=== PATIENT | female | born 1965 | race Caucasian/White ===

== ENCOUNTER 2021-04-11 07:50 | Emergency (ER) | payer OTHER, SELFPAY ==
[2021-04-11 07:55] VITALS: BP 146/94; PULSE 96; RESP 16; TEMP 37.2; O2SAT 92; BMI 37.0
--- NOTE | 2021-04-11 08:11 | XR_ITS ---
WS: [id number] Portable AP upright chest, 04/11/2021 Clinical Data: cough Comparison: Portable chest, 08/14/2017. Findings: No nodules, masses or effusions are seen. The heart is normal. The pulmonary vascularity is not increased. No pneumothorax is seen. There is minimal patchy opacity adjacent to the right cardia c border and also the left cardiac border and surface of the left diaphragm. The upper lobes are kellie r. XR/XR chest 1V portable [id number] Impression: Minimal patchy opacities at both lung bases which could represent atelectasis a nd/or minimal pneumonia.
--- NOTE | 2021-04-11 08:12 | ED_ITS ---
Documented by User: ERA Lutz 04/11/21 10:22 HPI - COVID General: Chief Complaint: COVID symptoms Stated Complaint: COUGH/CHEST TIGHTNESS/CRAMPING IN LEGS Time Seen by Provider: 04/11/21 07:59 Triage information: Has fever, cough or shortness of breath . Exposure to COVID + person last 14 days History of Present Illness: HPI Narrative: Patient started with symptoms 8 days ago. Patient has bilateral leg pain MD complaint: reported COVID exposure Prior covid testing: no COVID 19 common symptoms: positive chills, cough, non-productive cough, body aches, loss of sense of smell and/or taste and throat pain; negative headache(s), nausea or vomiting COVID 19 other sytmptoms: negative chest pain Onset (ago): day(s) Severity: mild Treatment prior to arrival: none COVID Results: SARS-CoV-2 Antigen (Rapid) Negative (Negative) 04/11/21 08:32 04/11/21 Review of Systems Const: Reports: chills and body aches Eyes: Denies: change in vision or blurry vision ENMT: Reports: throat pain Card: Denies: chest pain or dyspnea on exertion Resp: Reports: non-productive cough GI: Denies: abdominal pain, nausea or vomiting Musc: Denies: extremity pain Skin/Breast: Denies: rash Neuro: Denies: headache(s) Psych: Denies: anxiety or depression Robbin/Lymph: Denies: easy bruising Physical Exam Const: COMMON NORMALS: no acute distress, average body habitus and patient oriented x3 HENMT: COMMON NORMALS: normocephalic HEAD & SCALP: normal to inspection and normocephalic FACE & SINUS: normal facial exam Eye: COMMON NORMALS: conjunctivae normal GENERAL EYE: appearance normal, both eyes and all related structures CONJUNCTIVA: Yes conjunctivae normal Neck/C-Spine: COMMON NORMALS: no JVD Chest: COMMONS NORMALS: normal inspection of the chest Resp: COMMON NORMALS: normal respiratory effort and clear to auscultation bilaterally AUSCULTATION: clear to auscultation bilaterally Cardio: COMMON NORMALS: no JVD, regular rate and regular rhythm RATE: regular rate RHYTHM: regular rhythm GI: COMMON NORMALS: Normal to inspection, nondistended, normoactive bowel sounds present Extremity: COMMON NORMALS: normal to inspection and full ROM RIGHT LOWER EXTREMITY: Yes lower leg (Appears normal) LEFT LOWER EXTREMITY: Yes lower leg (Appears normal) Neuro: COMMON NORMALS: patient oriented x3 Course Vital Signs: Vital signs: Vital Signs Temperature 98.9 F 04/11/21 07:55 Pulse Rate 82 04/11/21 09:32 Respiratory Rate 16 04/11/21 08:34 Blood Pressure 126/89 04/11/21 08:34 Pulse Oximetry 96 04/11/21 09:32 MDM - COVID MDM Narrative: Medical decision making narrative: Patient presents with clinical signs of Covid. Did have recent Covid exposure. Patient has loss of taste and smell that occurred 8 days ago has had chills headache and nonproductive cough patient has bilateral lower extremity pain that started yesterday. Patient does not have any swelling redness or increased warmth to lower extremities. Able ambulate without difficulty. Clinical exam negative for DVT related presentation Homans' sign was negative. X-ray did show increased opacities in the lung bases. Patient is on day 8 of her symptoms. Patient declines PCR since she would not be able to most likely get a monoclonal antibody infusion by time test results are back. Patient encouraged to follow- up with primary care provider return here if worsening symptoms continue to monitor oxygen levels at home. Lab Data: Labs: Lab Results 04/11/21 04/11/21 04/11/21 08:32 08:32 08:32 WBC 5.4 10^3/uL 10^3/ uL (4.0-10.0) RBC 4.65 10^6/uL 10^6 /uL (4.1-5.3) Hgb 14.2 g/dL g/dL (11.5-15.3) Hct 40.3 % % (37.0-47.0) MCV 86.7 fl fl (81-99) MCH 30.5 pg pg (28.0-34.0) MCHC 35.2 g/dL g/dL (30.0-36.0) RDW 11.9 % L % (12.1-15.1) Plt Count 195 10^3/cmm 10^3 /cmm (130-400) MPV 10.0 fL fL (7.4-10.4) Neut % (Auto) 75.4 % % Lymph % (Auto) 14.9 % % [place] % (Auto) 8.4 % % Eos % (Auto) 0.2 % % Baso % (Auto) 0.2 % % Neut # (Auto) 4.05 10^3/uL 10^3 /uL (1.8-7.7) Lymph # (Auto) 0.8 10^3/uL 10^3/ uL (0.8-4.8) [place] # (Auto) 0.5 10^3/uL 10^3/ uL (0.2-0.9) Eos # (Auto) 0.0 10^3/uL 10^3/ uL (0.0-0.8) Baso # (Auto) 0.0 10^3/uL 10^3/ uL (0.0-0.1) Nucleated RBC % (a uto) 0 % % Nucleated RBCs # 0.0 /100WBC /100W BC Sodium 133 mmol/L L mmol /L (136-145) Potassium 4.0 mmol/L mmol/L (3.5-5.1) Chloride 100 mmol/L mmol/L (98-107) Carbon Dioxide 21 mmol/L L mmol/ L (22-29) Anion Gap 16.0 (5-19) BUN 8 mg/dL mg/dL (6-20) Creatinine 0.5 mg/dL mg/dL (0.5-0.9) GFR Calculation 129.1 mL/min mL/m in (90-130) Glucose 93 mg/dL mg/dL (65-115) Calculated Osmolal ity 274 mOsm/kg L mOs m/kg (285-295) Calcium 8.2 mg/dL L mg/dL (8.5-10.5) SARS-CoV-2 Ag (Rap id) Negative (Negative) COVID Results: SARS-CoV-2 Antigen (Rapid) Negative (Negative) 04/11/21 08:32 04/11/21 Discharge Plan Discharge Patient Disposition: Home Clinical Impression: Suspected severe acute respiratory syndrome coronavirus 2 (SARS-CoV-2) infection Condition: Stable Prescriptions: New Zithromax Z-Bryce 250 mg tablet See Rx Instructions .ROUTE .COMPLEX Qty: 6 RF: 0 Decadron 6 mg tablet 6 mg PO DAILY Qty: 7 RF: 0 Discharge Orders: Discharge ED (Routine); Ordered 04/11/21 Ordered By: Jovany De Los Santos Referrals: Osmin Cruz DO [Primary Care Provider] - Discharge Diet: Usual diet Discharge Activity: Increase activity as tolerated Patient Instructions: Viral Syndrome (ED) Activity Restrictions/Additional Instructions: Follow-up with medical provider as directed. Take medications as prescribed. Return to the ER or your medical provider if condition worsens. Please read and understand discharge instructions. If any questions ask please. Recommend quarantine for at least 3 more days. Coding Level of Care Code ED Courtesy Clerk for Chg Fwd Exam Comprehensive Documented by User: Jerald Degroot 04/11/21 10:36 HPI - COVID General: Chief Complaint: COVID symptoms Stated Complaint: COUGH/CHEST TIGHTNESS/CRAMPING IN LEGS Time Seen by Provider: 04/11/21 07:59 COVID Results: SARS-CoV-2 Antigen (Rapid) Negative (Negative) 04/11/21 08:32 04/11/21 Course Vital Signs: Vital signs: Vital Signs Temperature 98.9 F 04/11/21 07:55 Pulse Rate 82 04/11/21 09:32 Respiratory Rate 16 04/11/21 08:34 Blood Pressure 126/89 04/11/21 08:34 Pulse Oximetry 96 04/11/21 09:32 MDM - COVID Lab Data: Labs: Lab Results 04/11/21 04/11/21 04/11/21 08:32 08:32 08:32 WBC 5.4 10^3/uL 10^3/ uL (4.0-10.0) RBC 4.65 10^6/uL 10^6 /uL (4.1-5.3) Hgb 14.2 g/dL g/dL (11.5-15.3) Hct 40.3 % % (37.0-47.0) MCV 86.7 fl fl (81-99) MCH 30.5 pg pg (28.0-34.0) MCHC 35.2 g/dL g/dL (30.0-36.0) RDW 11.9 % L % (12.1-15.1) Plt Count 195 10^3/cmm 10^3 /cmm (130-400) MPV 10.0 fL fL (7.4-10.4) Neut % (Auto) 75.4 % % Lymph % (Auto) 14.9 % % [place] % (Auto) 8.4 % % Eos % (Auto) 0.2 % % Baso % (Auto) 0.2 % % Neut # (Auto) 4.05 10^3/uL 10^3 /uL (1.8-7.7) Lymph # (Auto) 0.8 10^3/uL 10^3/ uL (0.8-4.8) [place] # (Auto) 0.5 10^3/uL 10^3/ uL (0.2-0.9) Eos # (Auto) 0.0 10^3/uL 10^3/ uL (0.0-0.8) Baso # (Auto) 0.0 10^3/uL 10^3/ uL (0.0-0.1) Nucleated RBC % (a uto) 0 % % Nucleated RBCs # 0.0 /100WBC /100W BC Sodium 133 mmol/L L mmol /L (136-145) Potassium 4.0 mmol/L mmol/L (3.5-5.1) Chloride 100 mmol/L mmol/L (98-107) Carbon Dioxide 21 mmol/L L mmol/ L (22-29) Anion Gap 16.0 (5-19) BUN 8 mg/dL mg/dL (6-20) Creatinine 0.5 mg/dL mg/dL (0.5-0.9) GFR Calculation 129.1 mL/min mL/m in (90-130) Glucose 93 mg/dL mg/dL (65-115) Calculated Osmolal ity 274 mOsm/kg L mOs m/kg (285-295) Calcium 8.2 mg/dL L mg/dL (8.5-10.5) SARS-CoV-2 Ag (Rap id) Negative (Negative) COVID Results: SARS-CoV-2 Antigen (Rapid) Negative (Negative) 04/11/21 08:32 04/11/21 Discharge Plan Discharge Patient Disposition: Home Clinical Impression: Suspected severe acute respiratory syndrome coronavirus 2 (SARS-CoV-2) infection Condition: Stable Prescriptions: New Zithromax Z-Bryce 250 mg tablet See Rx Instructions .ROUTE .COMPLEX Qty: 6 RF: 0 Decadron 6 mg tablet 6 mg PO DAILY Qty: 7 RF: 0 Discharge Orders: Discharge ED (Routine); Ordered 04/11/21 Ordered By: Jovany De Los Santos Referrals: Osmin Cruz, [Primary Care Provider] - Discharge Diet: Usual diet Discharge Activity: Increase activity as tolerated Patient Instructions: Viral Syndrome (ED) Activity Restrictions/Additional Instructions: Follow-up with medical provider as directed. Take medications as prescribed. Return to the ER or your medical provider if condition worsens. Please read and understand discharge instructions. If any questions ask please. Recommend quarantine for at least 3 more days. Coding Level of Care Code ED Courtesy Clerk for Enriqueta Fwd Exam Comprehensive
[2021-04-11 08:34] VITALS: BP 126/89; PULSE 88; RESP 16; O2SAT 96
[2021-04-11 08:40] LABS: Basophils % 0.2 %; Eosinophils % 0.2 %; Hematocrit 40.3 % (37.0-47.0); Hemoglobin 14.2 g/dL (11.5-15.3); Lymphocytes # 0.8 10^3/uL (0.8-4.8); Lymphocytes % 14.9 %; Mean Corpuscular HGB Conc 35.2 g/dL (30.0-36.0); Mean Corpuscular Hemoglobin 30.5 pg (28.0-34.0); Mean Corpuscular Volume 86.7 fl (81-99); Monocytes # 0.5 10^3/uL (0.2-0.9); Monocytes % 8.4 %; Neutrophils # 4.05 10^3/uL (1.8-7.7); Neutrophils % 75.4 %; Nucleated Red Blood Cells % 0 %; Platelet Count 195 10^3/cmm (130-400); Red Blood Count 4.65 10^6/uL (4.1-5.3); Red Cell Distribution Width 11.9 % (12.1-15.1); White Blood Count 5.4 10^3/uL (4.0-10.0)
[2021-04-11 09:05] LABS: Slide Review Slide Review Perform
[2021-04-11 09:06] LABS: SARS Covid-2 Antigen Negative (Negative)
[2021-04-11 09:15] LABS: Blood Urea Nitrogen 8 mg/dL (6-20); Calcium 8.2 mg/dL (8.5-10.5); Carbon Dioxide 21 mmol/L (22-29); Chloride 100 mmol/L (98-107); Glomerular Filtration Rate 129.1 mL/min (90-130); Glucose 93 mg/dL (65-115); Osmolality Calculated 274 mOsm/kg (285-295); Sodium 133 mmol/L (136-145)
[2021-04-11 09:32] VITALS: PULSE 82; O2SAT 96
== END 2021-04-11 09:31 | disposition home or self-care (01) ==
PROVIDERS: Emergency Provider Nurse Practitioner Family; PCP Internal Medicine
DX: Z20.822 Contact with and (suspected) exposure to COVID-19 (principal)
CPT/HCPCS: 71045; 80048; 85025; 87426; 99283

== ENCOUNTER → 2022-06-18 16:47 | Outpatient (BNVA) | payer OTHER, SELFPAY | PROVIDERS: PCP Internal Medicine; Visit Provider Nurse Practitioner Family | DX: R00.0 Tachycardia, unspecified (principal); Z86.39 Personal history of other endocrine, nutritional and metabolic disease; Z76.89 Persons encountering health services in other specified circumstances; Z68.38 Body mass index [BMI] 38.0-38.9, adult | CPT/HCPCS: 80053; 80061; 83036; 84443; 85025 ==

== ENCOUNTER 2022-08-02 18:31 | Emergency (ER) | payer OTHER, SELFPAY ==
[2022-08-02 18:36] VITALS: BP 135/83; PULSE 102; RESP 20; TEMP 37; BMI 38.0
--- NOTE | 2022-08-02 18:47 | ECG_ITS ---
[facility] Test Date: 2022-08-02 Pat Name: Crystal Zuñiga Department: Room: Gender: Female Bag Sewer: : 1965 Requested By: Abdoulaye Riojas Order Number: [id number] Wisam MD: Gómez Moore M.D. Measurements Intervals [place] Rate: 103 P: 69 DE: 135 QRS: 82 QRSD: 93 T: 66 QT: 342 QTc: 448 Interpretive Statements SINUS TACHYCARDIA ABNORMAL RHYTHM ECG INTERPRETATION BASED ON A DEFAULT AGE OF 40 YEARS Compared to ECG 08/14/2017 13:16:25 Sinus rhythm no longer present Electronically Signed On 08-02-2022 23:06:29 CDT by Gómez Moore M.D. [id number]
--- NOTE | 2022-08-02 18:57 | XRR_ITS ---
PROCEDURE INFORMATION: Exam: XR Chest Exam date and time: 08/02/2022 7:06 PM Age: 57 years old Clinical indication: Sternal or substernal pain; Additional info: sunil Evans TECHNIQUE: Imaging protocol: Radiologic exam of the chest. Views: 1 view. COMPARISON: CR XR chest 1V portable [id number] 04/11/2021 8:18 AM FINDINGS: Lungs: Unremarkable. No consolidation. Pleural spaces: Unremarkable. No pleural effusion. No pneumothorax. Heart/Mediastinum: Unremarkable. No cardiomegaly. Bones/joints: Unremarkable. XR/XR chest 1V [id number] IMPRESSION: No acute findings.
[2022-08-02 19:27] LABS: Basophils # 0.1 10^3/uL (0.0-0.1); Basophils % 0.7 %; Eosinophils # 0.2 10^3/uL (0.0-0.8); Eosinophils % 2.1 %; Hematocrit 43.8 % (37.0-47.0); Hemoglobin 14.5 g/dL (11.5-15.3); Lymphocytes # 2.4 10^3/uL (0.8-4.8); Lymphocytes % 22.4 %; Mean Corpuscular HGB Conc 33.1 g/dL (30.0-36.0); Mean Corpuscular Hemoglobin 29.6 pg (28.0-34.0); Mean Corpuscular Volume 89.4 fl (81-99); Mean Platelet Volume 9.2 fL (7.4-10.4); Monocytes # 0.7 10^3/uL (0.2-0.9); Monocytes % 6.4 %; Neutrophils # 6.97 10^3/uL (1.8-7.7); Neutrophils % 66.6 %; Nucleated Red Blood Cells % 0 %; Platelet Count 288 10^3/cmm (130-400); Red Cell Distribution Width 12.2 % (12.1-15.1); White Blood Count 10.5 10^3/uL (4.0-10.0)
[2022-08-02 19:49] LABS: Troponin T (5th) Once 6 ng/L (0-10)
[2022-08-02 19:59] LABS: Alanine Aminotransferase 20 U/L (0-33); Albumin Level 4.3 g/dL (3.5-5.2); Alkaline Phosphatase 94 U/L (35-105); Anion Gap 14.6 (5-19); Aspartate Amino Transferase 14 U/L (0-32); Blood Urea Nitrogen 9 mg/dL (6-20); Calcium 8.9 mg/dL (8.5-10.5); Carbon Dioxide 27 mmol/L (22-29); Chloride 103 mmol/L (98-107); Globulin 2.8 g/dL (1.3-4.6); Glomerular Filtration Rate 86.9 mL/min (90-130); Glucose 101 mg/dL (65-115); Osmolality Calculated 289 mOsm/kg (285-295); Potassium 4.6 mmol/L (3.5-5.1); Sodium 140 mmol/L (136-145); Total Bilirubin 0.2 mg/dL (0.15-1.2); Total Protein 7.1 g/dL (6.6-8.7)
[2022-08-02 20:52] VITALS: BP 122/78; PULSE 85; RESP 20; O2SAT 95
[2022-08-02 21:00] VITALS: BP 125/69; PULSE 84; RESP 15; O2SAT 93
[2022-08-02 21:06] LABS: Add Urine Microscopic? NO; Charge for UA Resulting for Rev
[2022-08-02 21:26] LABS: Urine Appearance Clear (CLEAR); Urine Color Yellow (Yellow); pH Urine 5 (5-7)
[2022-08-02 21:29] LABS: Bilirubin Urine Neg (Negative); Blood Urine Neg (Negative); Glucose Urine UA Norm (Normal); Ketones Urine Negative (Negative); Leukocyte Esterase Urine Negative (Negative); Nitrate Urine Negative (Negative); Protein Urine Neg (Negative); Urobilinogen Urine Neg (Negative)
--- NOTE | 2022-08-02 21:58 | HM_ITS ---
[facility] Test Date: 2022-09-18 Pat Name: Crystal Zuñiga Department: Room: Gender: Female Supervisor Veneer: : 1965 Requested By: Magi Ferguson Order Number: [id number] Wisam MD: Gómez Moore M.D. Interpretive Statements INTERPRETATION: 1. The patient's monitor analysis was done for a total of 1 days 0 hours and 0 mins.the minimum heart rate was 70 beats per minute with a maximum of 134. The average heart rate was 92 beats per minute. The rhythm at the minimum and maximum heart rate were normal sinus and sinus tachycardia respectively. 2. There were 6 single premature atrial contractions. There were 0 couplets. There was 0 run(s) of narrow complex tachycardia. The supraventricular ectopics accounted for less than 0.01% of the heartbeats 3.There were 0 single premature ventricular contractions. There were 0 couplets., 0 bigeminal beats and 0 trigeminal beats. There were no runs of wide complex tachycardia. The ventricular ectopics accounted for 0.00% of the total heartbeats 4. . There were a total of 2 patient reported events. The symptoms mentioned were-chest pain/pressure, shortness of breath. The symptoms where found to be associated with normal sinus rhythm CONCLUSION: 1. The baseline rhythm was found to be normal sinus with an overall average heart rate of 72 beats per minute. There were a total of 0 Ventricular ectopics and 6 supraventricular ectopics. 2. No significant pauses or bradycardias noted. 3. The symptoms mentioned as above were found to be associated with normal sinus rhythm. 4. No similar previous studies are available for comparison Electronically Signed On 09-27-2022 20:42:26 CDT by Gómez Moore M.D. [id number]
[2022-08-02 22:19] VITALS: BP 117/73; PULSE 80; RESP 14; O2SAT 95
--- NOTE | 2022-08-02 23:00 | ED_ITS ---
HPI - Chest Pain General: Chief Complaint: Chest Pain Stated Complaint: cp Time Seen by Provider: 08/02/22 20:29 Source: patient Mode of arrival: ambulatory Limitations: no limitations History of Present Illness: Patient presents emergency department today accompanied by her for evaluation treatment of intermittent chest pains felt retrosternally into her back and wrapping around her right ribs. Patient has had these off and on now for a while and states she is often taken one of her husbands nitros. She states often she gets relief with the nitroglycerin or, she just waits for the pain to go away. She does state she takes a baby aspirin once a day. She has a history of reflux and heartburn for which she takes evkh-kid-unslgjh PPI but, admits she often misses a dose. She does admit to occasional shortness of breath with these episodes but denies syncope. She describes her pain as a contraction or a spasm type pain. Today she had right jaw pain associated with her discomfort which is what brings her in today. She states she tried a nitroglycerin today but got no relief. She states she has been told in the past that she has a faster heart rate but denies any specific precursor of palpitations before episodes of chest pain. Associated symptoms: Reports palpitations (occasional); Deny syncope Review of Systems General: Reports: 10 or more systems reviewed and unremarkable except in HPI and below Card: Reports: chest pain, palpitations (occasional) and dyspnea on exertion (occasional); Denies: lightheadedness or syncope [facility] ED PFSH: Family History Mother Cancer, Onset Age: 51 RENAL Father CAD (coronary artery disease) Social History Smoking and tobacco status: current some day smoker Alcohol intake: current Alcohol intake frequency: holidays/special occasions only Female Reproductive History: Date of menopause: 06/12/19 Physical Exam Const: COMMON NORMALS: no acute distress, patient oriented x3 and alert HENMT: COMMON NORMALS: normocephalic, atraumatic, hearing grossly normal bilaterally and Normal external nose present HEAD & SCALP: normocephalic and atraumatic NOSE: Normal external nose present Eye: COMMON NORMALS: Equal, round and reactive pupils present, EOMs intact bilaterally and conjunctivae normal CONJUNCTIVA: Yes conjunctivae normal PUPIL: Yes Equal, round and reactive pupils present Neck/C-Spine: COMMON NORMALS: no JVD Lymph: LYMPHATIC: no lymphadenopathy noted Resp: COMMON NORMALS: normal respiratory effort, No retractions and No use of accessory muscles Cardio: COMMON NORMALS: no JVD, regular rate and regular rhythm RATE: regular rate RHYTHM: regular rhythm : COMMON NORMALS: Yes no CVA tenderness BLADDER/KIDNEY EXAM: Yes no CVA tenderness Back/Pelvis: COMMON NORMALS: no CVA tenderness, thoracic and lumbar spine normal to inspection and thoraco-lumbar ROM normal Extremity: COMMON NORMALS: normal to inspection, full ROM and no pedal edema Neuro: COMMON NORMALS: patient oriented x3 SENSORIUM/ORIENTATION: Yes alert Skin: COMMON NORMALS: no rashes or lesions noted and turgor normal GENERAL SKIN EXAM: no rashes or lesions noted and turgor normal Course Vital Signs: Vital signs: Vital Signs Temperature 98.6 F 08/02/22 18:36 Pulse Rate 80 08/02/22 22:19 Respiratory Rate 14 08/02/22 22:19 Blood Pressure 117/73 08/02/22 22:19 Pulse Oximetry 95 08/02/22 22:19 Oxygen Delivery Me thod 08/02/22 20:52 MDM - Chest Pain Medical Decision Making Patient presented to the emergency department today for complaints of episodic retrosternal chest pain. She states she has been having these off-and-on and will self medicate with her 's nitro with some relief of symptoms at times. However, patient had no significant improvement in her pain and had right jaw pain which is what brought her in today. However, patient is EKG show ed no acute concerns as she had a normal sinus rhythm. Lab work was all unremarkable without concerns of anemia, infection, abnormal thyroid, elevated troponins or elevated D-dimer. Chest x-ray was also negative. With a negative work-up here in the ER, it is still possible patient was having issues with an arrhythmia that are not currently occurring here in the ER. Also, patient may be experiencing esophageal spasms. Explained her that to further evaluate for potential arrhythmia we recommend she wear a Holter monitor to try and catch any abnormal rhythms while she is symptomatic over the next week or so. A referral was placed for her to have Holter monitor administered. It was requested she have follow-up appointment with her primary care doctor next week for recheck of her symptoms. However, strict return precautions were discussed for concerns of return or worsening chest pains, shortness of breath, diaphoresis, pre or full syncope. Patient verbalized understanding and agreement to treatment plan. Differential Diagnosis Likely acute massive pulmonary embolism, acute myocardial infarction and cardiac arrest Lab Data 08/02/22 19:10 08/02/22 19:10 Radiology Impressions Chest X-Ray 08/02/22 18:57 IMPRESSION: No acute findings. Laboratory Results WBC 10.5 10^3/uL (4.0-10.0) H 08/02/22 19:10 RBC 4.90 10^6/uL (4.1-5.3) 08/02/22 19:10 Hgb 14.5 g/dL (11.5-15.3) 08/02/22 19:10 Hct 43.8 % (37.0-47.0) 08/02/22 19:10 MCV 89.4 fl (81-99) 08/02/22 19:10 MCH 29.6 pg (28.0-34.0) 08/02/22 19:10 MCHC 33.1 g/dL (30.0-36.0) 08/02/22 19:10 RDW 12.2 % (12.1-15.1) 08/02/22 19:10 Plt Count 288 10^3/cmm (130-400) 08/02/22 19:10 MPV 9.2 fL (7.4-10.4) 08/02/22 19:10 Neut % (Auto) 66.6 % 08/02/22 19:10 Lymph % (Auto) 22.4 % 08/02/22 19:10 [place] % (Auto) 6.4 % 08/02/22 19:10 Eos % (Auto) 2.1 % 08/02/22 19:10 Baso % (Auto) 0.7 % 08/02/22 19:10 Neut # (Auto) 6.97 10^3/uL (1.8-7.7) 08/02/22 19:10 Lymph # (Auto) 2.4 10^3/uL (0.8-4.8) 08/02/22 19:10 [place] # (Auto) 0.7 10^3/uL (0.2-0.9) 08/02/22 19:10 Eos # (Auto) 0.2 10^3/uL (0.0-0.8) 08/02/22 19:10 Baso # (Auto) 0.1 10^3/uL (0.0-0.1) 08/02/22 19:10 Nucleated RBC % (auto) 0 % 08/02/22 19:10 Nucleated RBCs # 0.0 /100WBC 08/02/22 19:10 D-Dimer 0.40 ug/mIFEU (0-0.59) 08/02/22 19:10 Sodium 140 mmol/L (136-145) 08/02/22 19:10 Potassium 4.6 mmol/L (3.5-5.1) 08/02/22 19:10 Chloride 103 mmol/L (98-107) 08/02/22 19:10 Carbon Dioxide 27 mmol/L (22-29) 08/02/22 19:10 Anion Gap 14.6 (5-19) 08/02/22 19:10 BUN 9 mg/dL (6-20) 08/02/22 19:10 Creatinine 0.7 mg/dL (0.5-0.9) 08/02/22 19:10 GFR Calculation 86.9 mL/min (90-130) L 08/02/22 19:10 Glucose 101 mg/dL (65-115) 08/02/22 19:10 Calculated Osmolality 289 mOsm/kg (285-295) 08/02/22 19:10 Calcium 8.9 mg/dL (8.5-10.5) 08/02/22 19:10 Total Bilirubin 0.2 mg/dL (0.15-1.2) 08/02/22 19:10 AST 14 U/L (0-32) 08/02/22 19:10 ALT 20 U/L (0-33) 08/02/22 19:10 Alkaline Phosphatase 94 U/L (35-105) 08/02/22 19:10 Troponin T Gen 5 ng/L 6 ng/L (0-10) 08/02/22 19:10 Total Protein 7.1 g/dL (6.6-8.7) 08/02/22 19:10 Albumin 4.3 g/dL (3.5-5.2) 08/02/22 19:10 Globulin 2.8 g/dL (1.3-4.6) 08/02/22 19:10 TSH 2.80 uIU/mL (0.27-4.20) 08/02/22 19:10 Urine Color Yellow (Yellow) 08/02/22 21:00 Urine Appearance Clear (CLEAR) 08/02/22 21:00 Urine pH 5 (5-7) 08/02/22 21:00 Ur Specific [place] 1.020 (1.005-1.030) 08/02/22 21:00 Urine Protein Neg (Negative) 08/02/22 21:00 Urine Glucose (UA) Norm (Normal) 08/02/22 21:00 Urine Ketones Negative (Negative) 08/02/22 21:00 Urine Blood Neg (Negative) 08/02/22 21:00 Urine Nitrate Negative (Negative) 08/02/22 21:00 Urine Bilirubin Neg (Negative) 08/02/22 21:00 Urine Urobilinogen Neg mg/dL (Negative) 08/02/22 21:00 Ur Leukocyte Esterase Negative (Negative) 08/02/22 21:00 Urine HCG, Qual Negative (Negative) 08/02/22 21:00 Discharge Plan Discharge Patient Disposition: Home Clinical Impression: Chest pain Condition: Stable Prescriptions: No Action aspirin 81 mg tablet,delayed release (DR/EC) 81 mg PO DAILY Discharge Orders: Discharge ED (Routine); Ordered 08/02/22 Ordered By: Magi Shelley Referrals: Osmin Cruz DO [Primary Care Provider] - Discharge Diet: Cardiac Discharge Activity: Increase activity as tolerated Patient Instructions: Chest Pain (ED), Esophageal Spasm (ED) Activity Restrictions/Additional Instructions: Your EKG today showed no acute concerns-especially concerning for an active heart attack. We checked your thyroid which was normal. We checked a marker concerning for a blood clot in the chest which was also normal. Your chest x- ray showed no acute concerns or anything structurally abnormal in your chest cavity. We checked a troponin level which is a cardiac marker of muscle injury or damage concerning for active or recent heart injury which was also negative. It is still possible that this could be related to a heart rhythm issue and for that reason, I have ordered a Holter monitor for you to wear. This is placed on an outpatient basis and you should be notified on Friday to come in and be shown how to wear it and how to use it. The order is for to be worn for 1 week and results will be read by a cargo bracer. From that point, based on any findings, you will receive follow-up. If findings are negative for concerns of heart issues, we do recommend following up with your primary care doctor for continued monitoring. It is still possible that this could be noncardiac related chest pain and could be related to your reflux or esophageal spasm. Continue to take your dysy-dol-extarnc acid reflux medication as you have been. I have given you some information about esophageal spasms for you to look over at home. However, if it anytime you develop returning severe chest pains with shortness of breath, radiating pain into your left arm or left jaw, blurred or loss of vision, loss of consciousness, vomiting, or severe headache you need to be seen and evaluated here in the emergency department. Coding Level of Care Code ED Clerk Cashier for Enriqueta Francisco
== END 2022-08-02 22:21 | disposition home or self-care (01) ==
PROVIDERS: Emergency Provider Physician Assistant; PCP Internal Medicine
DX: R07.9 Chest pain, unspecified (principal); Z79.82 Long term (current) use of aspirin; Z82.49 Family history of ischemic heart disease and other diseases of the circulatory system
CPT/HCPCS: 36415; 71045; 80053; 81003; 81025; 84443; 84484; 85025; 85378; 93005; 93246; 99285

== ENCOUNTER 2023-07-02 12:04 | Observation (INO) | payer OTHER, SELFPAY ==
[2023-07-02] VITALS (12 sets, daily range): BP systolic 111–139; BP diastolic 70–93; PULSE 71–91; RESP 15–24; TEMP 36.1–36.6; O2SAT 95–100; BMI 34.9
--- NOTE | 2023-07-02 12:23 | CT_ITS ---
WS: [id number] CT ABDOMEN PELVIS TECHNIQUE: Contrast-enhanced CT of the abdomen and pelvis with coronal and sagittal reformatted image s. CLINICAL INFORMATION: abd pain COMPARISON: 2015 DLP: 685.[address] scans at [facility] use at least one of these dose optimization techniques: automated e xposure control; mA and/or kV adjustment per patient size (includes targeted exams where dose is matc hed to clinical indication); or iterative reconstruction. FINDINGS: Prior hysterectomy and cholecystectomy. Fluid distended appendix in the RIGHT lower quadrant with mil d surrounding induration and inflammatory stranding compatible with acute appendicitis. Intense enhan cement at the base of the appendix with surrounding induration. Tiny appendicolith at the distal tip. Appendix measures 10 mm in short axis dimension. Diffuse fatty infiltration of the liver. Normal portal vein and splenic vein. Normal spleen. Normal G E junction. Lung bases are well aerated. Adrenal glands are normal. No hydronephrosis. Normal renal p arenchymal enhancement. No other acute findings. IMPRESSION: 1. Findings of acute appendicitis described above. 2. No evidence of diane appendiceal abscess or fluid collection. 3. Mild diffuse fatty infiltration of the liver. 4. Prior cholecystectomy and hysterectomy. Notified Everette Damon DO at 07/02/2023 1:45 PM.
--- NOTE | 2023-07-02 12:27 | ED_ITS ---
HPI - Abdominal Pain 2 General: Chief Complaint: Abdominal Pain Stated Complaint: right side abd pain Time Seen by Provider: 07/02/23 12:21 Source: patient Mode of arrival: ambulatory History of Present Illness: 57-year-old female presents emergency ro om from local clinic complaining of right lower quadrant abdominal pain. Pain began yesterday was more periumbilical suprapubic it migrated to his right lower quadrant overnight she last ate this morning about 3 to 4 hours prior to arrival had a few grapes. She been nauseous with a decreased appetite no vomiting no diarrhea no dysuria urgency or frequency no hematuria. She not noticed any fever. She previously has had a hysterectomy and bilateral oophorectomy. She is also had C-sections and a cholecystectomy. No history of kidney stones or diverticulitis. MD elicited complaint: abdominal pain Onset (ago): day(s) (1) Pain Consistency: constant Location: Periumbilical and Suprapubic Quality: sharp Migration to: RLQ Exacerbating factors: movement and other (Palpation) Relieving factors: nothing Associated Symptoms: Reports bloating and nausea; Denies anorexia, belching, change in bowel habits, change in stool character, chills, coffee ground emesis, constipation, GI cramping, diarrhea, dyspepsia, dysuria, excessive flatus, fever(s), heartburn, hematochezia, hematuria, hematemesis, fecal incontinence, loose stools, melena, poor appetite, syncope and vomiting Review of Systems 2 Const: Denies: fever(s) or chills Card: Denies: chest pain or syncope Resp: Denies: dyspnea GI: Reports: abdominal pain, nausea and bloating; Denies: vomiting, hematemesis, coffee ground emesis, heartburn, diarrhea, constipation, GI cramping, belching, excessive flatus, fecal incontinence, change in bowel habits, change in stool character, hematochezia or melena : Denies: dysuria, urinary frequency, urinary urgency or hematuria Musc: Denies: neck pain or back pain Skin/Breast: Denies: rash PFSH ED 2 PFSH: Family History Mother Cancer, Onset Age: 51 RENAL Father CAD (coronary artery disease) Social History (Reviewed 07/02/23 @ 12:27 by XIOMARA Carrasquillo Smoking and tobacco/nicotine status: current some day tobacco/nicotine user Alcohol intake: current Alcohol intake frequency: holidays/special occasions only Female Reproductive History: Date of menopause: 06/12/19 Physical Exam 2 Const: GENERAL APPEARANCE: cooperative and comfortable O RIENTATION/CONSCIOUSNESS: Yes awake, Yes oriented to person, Yes oriented to place and Yes oriented to time HENMT: COMMON NORMALS: normocephalic, atraumatic and hearing grossly normal bilaterally HEAD & SCALP: normocephalic and atraumatic Resp: COMMON NORMALS: normal respiratory effort, No retractions, No use of accessory muscles and clear to auscultation bilaterally AUSCULTATION: clear to auscultation bilaterally Cardio: COMMON NORMALS: regular rate, regular rhythm and No murmurs present (Cardio) RATE: regular rate RHYTHM: regular rhythm GI: COMMON NORMALS: No hepatosplenomegaly present AUSCULTATION: Yes normoactive bowel sounds PALPATION: Yes Tenderness to palpation present (GI) Details: RLQ, No Guarding due to palpation present (GI) and Yes No hepatosplenomegaly present Extremity: COMMON NORMALS: normal to inspection, capillary refill normal, no clubbing, cyanosis or edema, no calf tenderness and no pedal edema Neuro: SENSORIUM/ORIENTATION: Yes oriented to person, Yes oriented to place and Yes oriented to time Skin: COMMON NORMALS: no rashes or lesions noted GENERAL SKIN EXAM: no rashes or lesions noted Course 2 Vital Signs: Vital signs: Vital Signs Temperature 97.9 F 07/02/23 12:11 Pulse Rate 91 07/02/23 12:11 Respiratory Rate 15 07/02/23 12:11 Blood Pressure 128/84 07/02/23 12:11 Pulse Oximetry 98 07/02/23 12:11 Oxygen Delivery Me thod Room Air 07/02/23 12:11 MDM - Abdominal Pain Medical Decision Making CT shows acute appendicitis patient given Zosyn IV fluids discussed Dr. Galvez he will accept patient. Patient admitted for services for Differential Diagnosis Likely abdominal pain, acute appendicitis and calculus of kidney Medical Records I reviewed the patient's medical records. Lab Data I reviewed the patient's lab results. 07/02/23 12:27 07/02/23 12:27 Labs/Radiology: Laboratory Results WBC 7.59 10^3/uL (3.29-11.43) 07/02/23 12: RBC 4.73 10^6/uL (3.85-5.65) 07/02/23 12: Hgb 14.60 g/dL (11.27-16.99) 07/02/23 12: Hct 42.6 % (36-47) 07/02/23 12: MCV 90.1 fl (85-98) 07/02/23 12: MCH 30.9 pg (27-33) 07/02/23 12: MCHC 34.3 g/dL (30-55) 07/02/23 12: RDW 11.9 % (12.1-15.1) L 07/02/23: Plt Count 216 10^3/cmm (157-399) 07/02/23 12: MPV 9.3 fL (7.4-10.4) 07/02/23: Neut % (Auto) 73.3 % 07/02/23: Lymph % (Auto) 18.8 % 07/02/23 12: [place] % (Auto) 5.8 % 07/02/23: Eos % (Auto) 0.9 % 07/02/23: Baso % (Auto) 0.7 % 07/02/23: Neut # (Auto) 5.56 10^3/uL (1.8-7.7) 07/02/23: Lymph # (Auto) 1.4 10^3/uL (0.8-4.8) 07/02/23: [place] # (Auto) 0.4 10^3/uL (0.2-0.9) 07/02/23 12: Eos # (Auto) 0.1 10^3/uL (0.0-0.8) 07/02/23: Baso # (Auto) 0.1 10^3/uL (0.0-0.1) 07/02/23: Nucleated RBC % (auto) 0 % 07/02/23: Nucleated RBCs # 0.0 /100WBC 07/02/23 12: Sodium 137 mmol/L (136-145) 07/02/23 12:27 Potassium 4.0 mmol/L (3.5-5.1) 07/02/23 12:27 Chloride 103 mmol/L (98-107) 07/02/23 12:27 Carbon Dioxide 23 mmol/L (22-29) 07/02/23 12:27 Anion Gap 15.0 (5-19) 07/02/23 12:27 BUN 9 mg/dL (6-20) 07/02/23 12:27 Creatinine 0.7 mg/dL (0.5-0.9) 07/02/23 12:27 GFR Calculation 86.9 mL/min (90-130) L 07/02/23 12:27 Glucose 95 mg/dL (65-115) 07/02/23 12: Calculated Osmolality 282 mOsm/kg (285-295) L 07/02/23 12: Lactic Acid 0.7 mmol/L (0.5-2.2) 07/02/23 12: Calcium 8.8 mg/dL (8.5-10.5) 07/02/23 12:27 Total Bilirubin 0.3 mg/dL (0.15-1.2) 07/02/23 12:27 AST 10 U/L (0-32) 07/02/23 12:27 ALT 12 U/L (0-33) 07/02/23 12:27 Alkaline Phosphatase 93 U/L (35-105) 07/02/23 12:27 Total Protein 7.4 g/dL (6.6-8.7) 07/02/23 12: Albumin 4.1 g/dL (3.5-5.2) 07/02/23 12:27 Globulin 3.3 g/dL (1.3-4.6) 07/02/23 12:27 Urine Color Yellow (Yellow) 07/02/23 12:37 Urine Appearance Sl hazy (CLEAR) A 07/02/23 12:37 Urine pH 5 (5-7) 07/02/23 12:37 Ur Specific [place] 1.020 (1.005-1.030) 07/02/23 12:37 Urine Protein Neg (Negative) 07/02/23 12:37 Urine Glucose (UA) Norm (Normal) 07/02/23 12:37 Urine Ketones Negative (Negative) 07/02/23 12:37 Urine Blood Neg (Negative) 07/02/23 12:37 Urine Nitrate Negative (Negative) 07/02/23 12:37 Urine Bilirubin Neg (Negative) 07/02/23 12:37 Urine Urobilinogen Norm mg/dL (Negative) 07/02/23 12:37 Ur Leukocyte Esterase Negative (Negative) 07/02/23 12:37 Urine RBC 0-4 /hpf (0-2) H 07/02/23 12:37 Urine WBC 0-4 /hpf (0-5) H 07/02/23 12:37 Ur Squamous Epith Cells 0-4 /hpf (0-5) H 07/02/23 12:37 Amorphous Sediment Not Reportable 07/02/23 12:37 Urine Bacteria 1+ /hpf (NONE) H 07/02/23 12:37 Urine Mucus 3+ /hpf 07/02/23 12:37 All radiology interpretation(s) finalized by discharge Discharge Plan Discharge Patient Disposition: Admitted As Inpatient Clinical Impression: Acute appendicitis Condition: Stable Prescriptions: No Action aspirin 81 mg tablet,delayed release (DR/EC) 81 mg PO DAILY Referrals: Osmin Cruz DO [Primary Care Provider] - Coding Level of Care Code ED College Service Officer for Enriqueta Francisco
[2023-07-02 12:33] LABS: Basophils # 0.1 10^3/uL (0.0-0.1); Basophils % 0.7 %; Eosinophils # 0.1 10^3/uL (0.0-0.8); Eosinophils % 0.9 %; Hematocrit 42.6 % (36-47); Lymphocytes # 1.4 10^3/uL (0.8-4.8); Lymphocytes % 18.8 %; Mean Corpuscular HGB Conc 34.3 g/dL (30-55); Mean Corpuscular Hemoglobin 30.9 pg (27-33); Mean Corpuscular Volume 90.1 fl (85-98); Mean Platelet Volume 9.3 fL (7.4-10.4); Monocytes # 0.4 10^3/uL (0.2-0.9); Monocytes % 5.8 %; Neutrophils # 5.56 10^3/uL (1.8-7.7); Neutrophils % 73.3 %; Nucleated Red Blood Cells % 0 %; Platelet Count 216 10^3/cmm (157-399); Red Blood Count 4.73 10^6/uL (3.85-5.65); Red Cell Distribution Width 11.9 % (12.1-15.1); White Blood Count 7.59 10^3/uL (3.29-11.43)
[2023-07-02] MEDS: sodium chloride 0.9% 1,000 ML 999 ML IV ×2 (12:36→13:47)
[2023-07-02] MEDS: ondansetron 2 mg/ML SDV 2 mL 4 MG IVP ×2 (12:48→19:54)
[2023-07-02 12:49] LABS: Alanine Aminotransferase 12 U/L (0-33); Albumin Level 4.1 g/dL (3.5-5.2); Alkaline Phosphatase 93 U/L (35-105); Aspartate Amino Transferase 10 U/L (0-32); Blood Urea Nitrogen 9 mg/dL (6-20); Calcium 8.8 mg/dL (8.5-10.5); Carbon Dioxide 23 mmol/L (22-29); Chloride 103 mmol/L (98-107); Creatinine Clr Calc Pharmacy 85.6925; Globulin 3.3 g/dL (1.3-4.6); Glomerular Filtration Rate 86.9 mL/min (90-130); Glucose 95 mg/dL (65-115); Osmolality Calculated 282 mOsm/kg (285-295); Sodium 137 mmol/L (136-145); Total Bilirubin 0.3 mg/dL (0.15-1.2); Total Protein 7.4 g/dL (6.6-8.7)
[2023-07-02 12:50] LABS: Lactic Sepsis W/Reflex 0.7 mmol/L (0.5-2.2)
[2023-07-02] MEDS: iohexol 350 mg/mL 500 mL Btl (per mL) IV (12:55)
[2023-07-02 12:57] LABS: Add Urine Microscopic? YES; Bilirubin Urine Neg (Negative); Blood Urine Neg (Negative); Glucose Urine UA Norm (Normal); Ketones Urine Negative (Negative); Leukocyte Esterase Urine Negative (Negative); Nitrate Urine Negative (Negative); Protein Urine Neg (Negative); Urine Appearance SL Hazy (CLEAR); Urine Color Yellow (Yellow); Urobilinogen Urine Norm (Negative); pH Urine 5 (5-7)
[2023-07-02 13:07] LABS: Bacteria Urine 1+ /hpf; Mucus Urine 3+ /hpf; RBC Urine 0-4 /hpf (0-2); Squamous Epithelial Cell Urine 0-4 /hpf (0-5); WBC Urine 0-4 /hpf (0-5)
[2023-07-02 13:08] LABS: Add Urine Culture? No
[2023-07-02] MEDS: morphine 4 mg/mL SDV 1 mL IVP (13:44)
[2023-07-02] MEDS: piperacillin-tazobactam 3.375 GM in sodium chloride 0.9% (plus) 50 ML IV ×2 (13:46→20:01)
--- NOTE | 2023-07-02 15:32 | P.HP_ITS ---
Providers/Chief Complaint 2 Admitting Physician: Raffi Galvez DO Primary Care Provider: Osmin Cruz DO Chief Complaint: right side abd pain History of Present Illness Crystal Zuñiga is a 57 year old female who presented to the hospital with 1 day history of abdominal pain. The pain is sharp and constant. It began around her umbilicus and then spread to her right lower quadrant. Palpation makes pain worse. Nothing makes pain better. She denies any nausea, emesis, diarrhea, constipation, hematochezia and/or melena. Denies any fever or chills. CT abdomen pelvis shows acute appendicitis. Review of Systems 2 General: Reports: 10 or more systems reviewed and unremarkable except in HPI and below Medications/Allergies Home Medications Medication Instructions Recorded Confirmed Last Taken Type aspirin 81 mg tablet,delayed 81 mg PO DAILY 06/18/22 07/02/23 07/02/23 History release Allergies Allergy/AdvReac Type Severity Reaction Status Date / Time No Known Allergies Allergy Unverified 06/18/22 09:19 PFSH Acute 2 PFSH: Family History Mother Cancer, Onset Age: 51 RENAL Father CAD (coronary artery disease) Social History Smoking and tobacco/nicotine status: current some day tobacco/nicotine user Alcohol intake: current Alcohol intake frequency: holidays/special occasions only Female Reproductive History: Date of menopause: 06/12/19 Vitals/I&O/Wt Last Vital Signs Temp 97.9 F 07/02/23 12:11 Pulse 91 07/02/23 14:20 Resp 18 07/02/23 14:20 BP 131/93 07/02/23 14:20 Pulse Ox 97 07/02/23 14:20 O2 Del Method Room Air 07/02/23 15:02 07/02/23 07/02/23 07/02/23 06:59 14:59 22:59 Intake Total 1050 / 1050 1000 / 0 Balance 1050 / 1050 1000 / 0 Weight last 48 hrs Weight 179 lb Weight 179 lb Physical Exam 2 Narrative: General : Patient is well developed , no acute distress, oriented x3 Head : Normal cephalic, a-traumatic. Ears : Pinnae and external canal are normal. Hearing is normal. Eyes : PERRLA, Sclera and injection are normal. No conjunctival discharge. Nose : Mucous membranes are without erythema. Throat : buccal mucosa is normal, gums are without significant recession or hypertrophy. Lungs : Equal chest rise bilaterally, no use of accessory muscles, trachea is midline. Cor : Rate and rhythm are normal. Abdomen : Soft, ND, tender to palpation right lower quadrant, negative Rovsing's, no g/r/m Extremities : No edema, no cyanosis or clubbing, dorsalis pedis pulses are present bilaterally, non-tender to palpation of calves. Upper extremities are normal bilaterally. Back : non-tender to palpation, no CVA tenderness. Neuro : CN II - XII intact, Upper and lower extremities have equal and full strength Data 07/02/23 12:27 07/02/23 12:27 A&P Assessment and plan (1) Acute appendicitis: Plan Laparoscopic Appendectomy The risks and benefits of the procedure, including but not limited to, bleeding, infection, scar, numbness, pain, damage to surrounding structures, conversion to an open procedure, were explained to the patient. He is understanding of the risks and wishes to proceed. Attestations 2 Medical Necessity Statement*: Patient requires at least 1 night in the hospital for IV antibiotics and recovery after laparoscopic appendectomy Coding Level of Care Code 24349 Diagnoses Acute appendicitis K35.80
[2023-07-02] MEDS: D5-NS 0.45% + KCL 20 mEq 20 MEQ/1,000 ML BAG 125 MEQ IV (15:35)
[2023-07-02] MEDS: morphine 4 mg/mL SDV 1 mL 2 MG IVP (15:36)
--- NOTE | 2023-07-02 16:42 | ANES.PREANE2 ---
Pre-Anesthetic Assessment Height/Weight: Height 1.52 m Weight 81.193 kg Temp Pulse Resp BP Pulse Ox O2 Del Method 97.7 F 86 17 135/79 97 Room Air 07/02/23 16:32 07/02/23 16:32 07/02/23 16:32 07/02/23 16:32 07/02/23 16:32 07/02/23 16:32 Operation Date: 07/02/23 17:20 Proposed Procedures p Laparoscopic Appendectomy(Not Applicable) - Raffi Galvez DO Familial anesthetic complications: None Was Beta Cristobal taken within 24 hours: N/A Was Clonidine taken within 24 hours: N/A Last intake: Intake Last Liquid Date 07/02/23 Last Liquid Time 10:00 Last Solid Date 07/02/23 Last Solid Time 09:00 grapes Social Alcohol and Tobacco (encouraged smoking cessation and to f/u w/ pcp for guidance) Exam alert, oriented x 3, clear to auscultation bilaterally and regular rate & rhythm Airway Mallampati: Class II Dentition: false Metabolic Morbid Obesity Anesthetic Plan ASA status: 2 Anesthesia: General Risk of > 500 ml blood loss (7ml/kg in children): No Medications/Allergies Home Medications Medication Instructions Recorded Confirmed Last Taken Type aspirin 81 mg tablet,delayed 81 mg PO DAILY 06/18/22 07/02/23 07/02/23 History release Allergies Allergy/AdvReac Type Severity Reaction Status Date / Time No Known Allergies Allergy Unverified 06/18/22 09:19 Current Medications Generic Name Dose Route Start Last Admin Trade Name Freq PRN Reason Stop Dose Admin Potassium Chloride/Dextrose/Sod Cl 20 meq in 1,000 mls @ 125 mls/hr 07/02/23 14:49 07/02/23 15:35 D5-Ns 0.45% + Kcl 20 Meq IV 125 mls/hr .Q8H DK Administration Morphine Sulfate 2 mg 07/02/23 14:49 07/02/23 15:36 Morphine 4 Mg/Ml Sdv 1 Ml IVP 2 mg Q4H PRN Administration SEVERE PAIN PFSH Anesthesia Family History Mother Cancer, Onset Age: 51 RENAL Father CAD (coronary artery disease) Social History Smoking and tobacco/nicotine status: current some day tobacco/nicotine user Alcohol intake: current Alcohol intake frequency: holidays/special occasions only Female Reproductive History Date of menopause: 06/12/19 Data Anesthesia 07/02/23 12:27 07/02/23 12:27 Short CBC 07/02/23 Range/Units 12:27 WBC 7.59 (3.29-11.43) 10^3/uL Hgb 14.60 (11.27-16.99) g/dL Hct 42.6 (36-47) % MCV 90.1 (85-98) fl Plt Count 216 (157-399) 10^3/cmm Neut % (Auto) 73.3 % Neut # (Auto) 5.56 (1.8-7.7) 10^3/uL BMP 07/02/23 12:27 Sodium 137 Potassium 4.0 Chloride 103 Carbon Dioxide 23 BUN 9 Creatinine 0.7 Glucose 95 Calcium 8.8 Liver Function 07/02/23 Range/Units 12:27 Total Bilirubin 0.3 (0.15-1.2) mg/dL AST 10 (0-32) U/L ALT 12 (0-33) U/L Alkaline Phosphatase 93 (35-105) U/L Albumin 4.1 (3.5-5.2) g/dL Urine 07/02/23 Range/Units 12:37 Urine Color Yellow (Yellow) Urine Appearance Sl hazy A (CLEAR) Urine pH 5 (5-7) Ur Specific [place] 1.020 (1.005-1.030) Urine Protein Neg (Negative) Urine Glucose (UA) Norm (Normal) Urine Ketones Negative (Negative) Urine Nitrate Negative (Negative) Urine Bilirubin Neg (Negative) Ur Leukocyte Esterase Negative (Negative) Urine RBC 0-4 H (0-2) /hpf Urine WBC 0-4 H (0-5) /hpf Cardiac Studies: Holter Monitor 08/02/22
[2023-07-02] MEDS: sodium chloride 0.9% 1,000 ML 30 ML IV (16:50)
[2023-07-02] MEDS: lidocaine-epi 2% PF 1:200,000 20 mL SDV XX (17:44)
--- NOTE | 2023-07-02 18:31 | PM.OP ---
Operative Report Date of procedure: July 02, 2023 Pre-op diagnosis: Acute appendicitis Post-op diagnosis: same Procedure done: Laparoscopic appendectomy Implants: None Specimens removed/disposition: Appendix Surgeon: Raffi Galvez DO Anesthesia: General and Local Estimated blood loss (mL): 5 Complications: None apparent Findings: Extensive intra-abdominal adhesions Brief History: This very pleasant 57-year-old female who presented to the hospital with abdominal pain. She diagnosed with acute appendicitis. Laparoscopic appendectomy is indicated. The risk benefits were explained and documented. Procedure: Patient was wheeled into the operative room and placed on the OR table in a supine position. Abdomen was inspected prepped and draped in usual sterile fashion. Time-out was performed and all present were in agreement. A 15 blade scalp was used to make a stab incision in the left upper quadrant and intra-abdominal insufflation was achieved using a Veress needle. This incision was extended to 5 mm and a 5 mm trocar was placed into this incision. This was due to a midline abdominal scar and concerns of intra-abdominal adhesions. Extensive omental adhesions were identified in the midline abdomen to the abdominal wall from omentum. This was taken down bluntly with the laparoscopic camera. After localizing the tissue incisions were made and a 12 millimeter trocar was placed into the umbilicus as well as a 5mm in the right lower quadrant and a 5 mm in the left lower quadrant . The appendix was identified and was mildly inflamed. I used the LigaSure to ligate the mesoappendix at the base. I then used 2 PDS endo-loops to snare the base of the appendix. I then used the LigaSure to ligate the appendix distally. The appendix was removed from the abdomen using an Endo-Catch bag through the umbilical incision. A 5 mm clip atlassian administrator was used to reinforce the appendectomy site. I examined the abdomen and no further pathology was identified. Hemostasis was noted. Omentum was placed over the operative site. I then closed the umbilical site with a Jason-Salvatore and 0 Vicryl suture in a figure of 8 fashion. All ports removed. Skin was washed and dried. Incisions were closed with 4-0 Monocryl in a subcuticular interrupted fashion. Skin glue was applied. Patient tolerated the procedure well.
[2023-07-02] MEDS: HYDROmorphone 1 mg/mL INJ 1 mL IVP (19:54)
[2023-07-02] MEDS: heparin 5,000 unit/mL INJ 1 mL 5000 UNIT SUBCUT (20:00)
[2023-07-02] MEDS: sodium chloride 0.9% 1,000 ML 125 ML IV (20:00)
[2023-07-02] MEDS: HYDROcodone-acetaminophen 7.5-325 mg Tablet 1 TAB PO (23:38)
[2023-07-03] MEDS: sodium chloride 0.9% 1,000 ML 125 ML IV ×3 (04:06→18:28)
[2023-07-03] MEDS: piperacillin-tazobactam 3.375 GM in sodium chloride 0.9% (plus) 50 ML IV ×3 (04:23→18:25)
[2023-07-03] MEDS: HYDROcodone-acetaminophen 7.5-325 mg Tablet 1 TAB PO ×5 (04:23→23:56)
[2023-07-03 05:34] LABS: Basophils % 0.1 %; Hematocrit 37.4 % (36-47); Lymphocytes # 0.5 10^3/uL (0.8-4.8); Lymphocytes % 3.4 %; Mean Corpuscular HGB Conc 33.7 g/dL (30-55); Mean Corpuscular Hemoglobin 30.7 pg (27-33); Monocytes # 0.7 10^3/uL (0.2-0.9); Monocytes % 4.7 %; Neutrophils # 13.17 10^3/uL (1.8-7.7); Neutrophils % 91.2 %; Nucleated Red Blood Cells % 0 %; Platelet Count 204 10^3/cmm (157-399); Red Blood Count 4.11 10^6/uL (3.85-5.65); Red Cell Distribution Width 12.1 % (12.1-15.1); White Blood Count 14.45 10^3/uL (3.29-11.43)
[2023-07-03 05:57] LABS: Anion Gap 16.1 (5-19); Blood Urea Nitrogen 7 mg/dL (6-20); Calcium 7.9 mg/dL (8.5-10.5); Carbon Dioxide 20 mmol/L (22-29); Chloride 106 mmol/L (98-107); Creatinine Clr Calc Pharmacy 99.9746; Glomerular Filtration Rate 103.8 mL/min (90-130); Glucose 127 mg/dL (65-115); Magnesium 1.8 mg/dL (1.7-2.3); Osmolality Calculated 286 mOsm/kg (285-295); Potassium 4.1 mmol/L (3.5-5.1); Sodium 138 mmol/L (136-145)
[2023-07-03 06:00] VITALS: BMI 34.9
[2023-07-03] MEDS: heparin 5,000 unit/mL INJ 1 mL 5000 UNIT SUBCUT ×2 (07:23→18:26)
[2023-07-03 07:26] VITALS: BP 100/66; PULSE 70; RESP 16; TEMP 36.6; O2SAT 92
[2023-07-03 11:22] VITALS: BP 106/73; PULSE 69; RESP 16; TEMP 36.8; O2SAT 94
[2023-07-03 16:50] VITALS: BP 118/77; PULSE 77; RESP 16; TEMP 36.8; O2SAT 96
--- NOTE | 2023-07-03 17:48 | PC.NURSE ---
SHIFT SUMMARY Patient has done very well today. She has ambulated multiple times in the hallway. Pain well controlled with oral pain medication. Tolerating regular diet. Passing gas. Excellent urine output. Surgical sites are asymptomatic. Currently resting in bed with at bedside.
[2023-07-03 20:00] VITALS: BP 109/72; PULSE 73; RESP 16; TEMP 36.4; O2SAT 95
[2023-07-04] VITALS: BP 139/79; PULSE 70; RESP 16; TEMP 36.4; O2SAT 95
[2023-07-04 01:05] VITALS: RESP 18
[2023-07-04] MEDS: HYDROmorphone 1 mg/mL INJ 1 mL IVP (01:05)
[2023-07-04] MEDS: sodium chloride 0.9% 1,000 ML 125 ML IV (02:16)
[2023-07-04] MEDS: piperacillin-tazobactam 3.375 GM in sodium chloride 0.9% (plus) 50 ML IV (03:21)
[2023-07-04 05:04] LABS: Basophils % 0.4 %; Eosinophils # 0.1 10^3/uL (0.0-0.8); Eosinophils % 1.1 %; Hematocrit 36.1 % (36-47); Lymphocytes # 2.3 10^3/uL (0.8-4.8); Lymphocytes % 24.1 %; Mean Corpuscular HGB Conc 32.7 g/dL (30-55); Mean Corpuscular Volume 94.8 fl (85-98); Mean Platelet Volume 9.4 fL (7.4-10.4); Monocytes # 0.7 10^3/uL (0.2-0.9); Monocytes % 7.3 %; Neutrophils # 6.24 10^3/uL (1.8-7.7); Neutrophils % 66.7 %; Nucleated Red Blood Cells % 0 %; Platelet Count 168 10^3/cmm (157-399); Red Blood Count 3.81 10^6/uL (3.85-5.65); Red Cell Distribution Width 12.5 % (12.1-15.1); White Blood Count 9.35 10^3/uL (3.29-11.43)
[2023-07-04 05:25] LABS: Anion Gap 11.7 (5-19); Blood Urea Nitrogen 7 mg/dL (6-20); Calcium 8.2 mg/dL (8.5-10.5); Carbon Dioxide 25 mmol/L (22-29); Chloride 108 mmol/L (98-107); Creatinine Clr Calc Pharmacy 90.3744; Glomerular Filtration Rate 86.9 mL/min (90-130); Glucose 100 mg/dL (65-115); Magnesium 1.9 mg/dL (1.7-2.3); Osmolality Calculated 290 mOsm/kg (285-295); Potassium 3.7 mmol/L (3.5-5.1); Sodium 141 mmol/L (136-145)
[2023-07-04] MEDS: heparin 5,000 unit/mL INJ 1 mL 5000 UNIT SUBCUT (06:37)
[2023-07-04] MEDS: HYDROcodone-acetaminophen 7.5-325 mg Tablet 1 TAB PO ×2 (07:19→11:19)
[2023-07-04 07:23] VITALS: BP 142/71; PULSE 68; RESP 16; TEMP 36.4; O2SAT 95
--- NOTE | 2023-07-04 09:25 | P.DS_ITS ---
Discharge Providers Date of Admission: 07/02/23 14:20 Date of Discharge: July 04, 2023 Attending Provider at Admission: Raffi Galvez DO Attending Provider at Discharge: Raffi Galvez DO Primary Care Provider: Osmin Cruz DO Diagnoses at Discharge Discharge Diagnosis (1) Acute appendicitis: Status: Acute Reason for Visit Reason for Visit: right side abd pain Hospital Course Hospital Course This is a very pleasant 57-year-old female who presented to the hospital with abdominal pain. She was diagnosed with appendicitis and underwent laparoscopic cholecystectomy. She did well postoperatively and was discharged home in good condition on postoperative day #2 with antibiotics. Physical Exam Narrative: General : Patient is well developed , no acute distress, oriented x3 Head : Normal cephalic, a-traumatic. Ears : Pinnae and external canal are normal. Hearing is normal. Eyes : PERRLA, Sclera and injection are normal. No conjunctival discharge. Nose : Mucous membranes are without erythema. Throat : buccal mucosa is normal, gums are without significant recession or hypertrophy. Lungs : Equal chest rise bilaterally, no use of accessory muscles, trachea is midline. Cor : Rate and rhythm are normal. Abdomen : Soft, mild distention, appropriately tender, no g/r/m, incisions intact without erythema or exudate Extremities : No edema, no cyanosis or clubbing, dorsalis pedis pulses are present bilaterally, non-tender to palpation of calves. Upper extremities are normal bilaterally. Back : non-tender to palpation, no CVA tenderness. Neuro : CN II - XII intact, Upper and lower extremities have equal and full strength Discharge Data Studies Completed and Pending Completed Studies During Hospitalization Category Date Time Status CT abdomen pelvis w con* [id number] Stat Cat Scan 07/02/23 12:23 Completed Pending at discharge Category Date Time Status BMP [Basic Metabolic Panel] AM LABS Lab 07/05/23 04:00 Ordered CBC Auto Diff [Complete Blood Count w/Auto] AM LABS Lab 07/05/23 04:00 Ordered Magnesium AM LABS Lab 07/05/23 04:00 Ordered Pathology: Surgical [PTH] Routine Pth 07/02/23 18:34 Received Laboratory Results WBC 9.35 10^3/uL (3.29-11.43) 07/04/23 04:56 RBC 3.81 10^6/uL (3.85-5.65) L 07/04/23 04:56 Hgb 11.80 g/dL (11.27-16.99) 07/04/23 04:56 Hct 36.1 % (36-47) 07/04/23 04:56 MCV 94.8 fl (85-98) 07/04/23 04:56 MCH 31.0 pg (27-33) 07/04/23 04:56 MCHC 32.7 g/dL (30-55) 07/04/23 04:56 RDW 12.5 % (12.1-15.1) 07/04/23 04:56 Plt Count 168 10^3/cmm (157-399) 07/04/23 04:56 MPV 9.4 fL (7.4-10.4) 07/04/23 04:56 Neut % (Auto) 66.7 % 07/04/23 04:56 Lymph % (Auto) 24.1 % 07/04/23 04:56 [place] % (Auto) 7.3 % 07/04/23 04:56 Eos % (Auto) 1.1 % 07/04/23 04:56 Baso % (Auto) 0.4 % 07/04/23 04:56 Neut # (Auto) 6.24 10^3/uL (1.8-7.7) 07/04/23 04:56 Lymph # (Auto) 2.3 10^3/uL (0.8-4.8) 07/04/23 04:56 [place] # (Auto) 0.7 10^3/uL (0.2-0.9) 07/04/23 04:56 Eos # (Auto) 0.1 10^3/uL (0.0-0.8) 07/04/23 04:56 Baso # (Auto) 0.0 10^3/uL (0.0-0.1) 07/04/23 04:56 Nucleated RBC % (auto) 0 % 07/04/23 04:56 Nucleated RBCs # 0.0 /100WBC 07/04/23 04:56 Sodium 141 mmol/L (136-145) 07/04/23 04:56 Potassium 3.7 mmol/L (3.5-5.1) 07/04/23 04:56 Chloride 108 mmol/L (98-107) H 07/04/23 04:56 Carbon Dioxide 25 mmol/L (22-29) 07/04/23 04:56 Anion Gap 11.7 (5-19) 07/04/23 04:56 BUN 7 mg/dL (6-20) 07/04/23 04:56 Creatinine 0.7 mg/dL (0.5-0.9) 07/04/23 04:56 GFR Calculation 86.9 mL/min (90-130) L 07/04/23 04:56 Glucose 100 mg/dL (65-115) 07/04/23 04:56 Calculated Osmolality 290 mOsm/kg (285-295) 07/04/23 04:56 Lactic Acid 0.7 mmol/L (0.5-2.2) 07/02/23 12:27 Calcium 8.2 mg/dL (8.5-10.5) L 07/04/23 04:56 Magnesium 1.9 mg/dL (1.7-2.3) 07/04/23 04:56 Total Bilirubin 0.3 mg/dL (0.15-1.2) 07/02/23 12:27 AST 10 U/L (0-32) 07/02/23 12:27 ALT 12 U/L (0-33) 07/02/23 12:27 Alkaline Phosphatase 93 U/L (35-105) 07/02/23 12:27 Total Protein 7.4 g/dL (6.6-8.7) 07/02/23 12:27 Albumin 4.1 g/dL (3.5-5.2) 07/02/23 12:27 Globulin 3.3 g/dL (1.3-4.6) 07/02/23 12:27 Urine Color Yellow (Yellow) 07/02/23 12:37 Urine Appearance Sl hazy (CLEAR) A 07/02/23 12:37 Urine pH 5 (5-7) 07/02/23 12:37 Ur Specific [place] 1.020 (1.005-1.030) 07/02/23 12:37 Urine Protein Neg (Negative) 07/02/23 12:37 Urine Glucose (UA) Norm (Normal) 07/02/23 12:37 Urine Ketones Negative (Negative) 07/02/23 12:37 Urine Blood Neg (Negative) 07/02/23 12:37 Urine Nitrate Negative (Negative) 07/02/23 12:37 Urine Bilirubin Neg (Negative) 07/02/23 12:37 Urine Urobilinogen Norm mg/dL (Negative) 07/02/23 12:37 Ur Leukocyte Esterase Negative (Negative) 07/02/23 12:37 Urine RBC 0-4 /hpf (0-2) H 07/02/23 12:37 Urine WBC 0-4 /hpf (0-5) H 07/02/23 12:37 Ur Squamous Epith Cells 0-4 /hpf (0-5) H 07/02/23 12:37 Amorphous Sediment Not Reportable 07/02/23 12:37 Urine Bacteria 1+ /hpf (NONE) H 07/02/23 12:37 Urine Mucus 3+ /hpf 07/02/23 12:37 Procedures Performed Laparoscopic appendectomy Vitals Last Vital Signs Temp 97.6 F 07/04/23 07:23 Pulse 68 07/04/23 07:23 Resp 16 07/04/23 07:23 BP 142/71 07/04/23 07:23 Pulse Ox 95 07/04/23 07:23 O2 Del Method Room Air 07/04/23 07:23 Discharge Plan Discharge Patient Disposition: Home Condition: Stable Prescriptions: New amoxicillin-pot clavulanate 875-125 mg tablet 1 tab PO BID Qty: 14 0RF hydrocodone-acetaminophen 7.5-325 mg tablet 1 tab PO Q6H PRN (Reason: pain) Qty: 20 0RF docusate sodium [Colace] 100 mg capsule 100 mg PO BID Qty: 14 0RF Continued aspirin 81 mg tablet,delayed release (DR/EC) 81 mg PO DAILY Discharge Orders: Discharge Order (Routine); Ordered 07/04/23 Ordered By: Raffi Galvez Referrals: Osmin Cruz DO [Primary Care Provider] - 4-7 days Raffi Galvez DO [Physician] - 2 weeks Discharge Diet: Advance as tolerated Discharge Activity: Resume usual activity Patient Instructions: Opioid Safety, Post Anesthesia Care Activity Restrictions/Additional Instructions: Do not soak incisions underwater for 2 weeks. Shower daily. Discharge Attestations Time Spent in Discharge Care*: less than 30 min Quality Metrics Clinical Quality Measures [ No reported AMI, CVA or VTE this stay] Coding Level of Care Code Acute Code for [facility] Fwd Diagnoses Acute appendicitis K35.80
[2023-07-04] MEDS: aspirin 81 mg EC Tablet PO (10:03)
[2023-07-04 11:33] VITALS: BP 142/71; PULSE 68; RESP 16; TEMP 36.4; O2SAT 95
== END 2023-07-04 11:34 | disposition home or self-care (01) ==
LOC: ER 13:59 → MEDSURG 14:32
PROVIDERS: Admitting Provider Surgery; Emergency Provider Family Medicine; PCP Internal Medicine; Visit Provider Surgery
PROC: 0DTJ4ZZ Resection of Appendix, Percutaneous Endoscopic Approach (ICD-10-PCS; CPT 44970; principal; 2023-07-02 17:20)
DX: K35.80 Unspecified acute appendicitis (principal); Z90.710 Acquired absence of both cervix and uterus; Z98.890 Other specified postprocedural states; Z90.49 Acquired absence of other specified parts of digestive tract; F17.200 Nicotine dependence, unspecified, uncomplicated
CPT/HCPCS: 44970; 36415; 74177; 80048; 80053; 81001; 83605; 83735; 85025; 88304; 96365; 96372; 96375; 99285; G0378; J0330; J1100; J1170; J1644; J2250; J2270; J2405; J2543; J2704; J2710; J3010; J3490; J7030; Q9967

== ENCOUNTER 2024-09-10 12:36 | Outpatient (CLI) | payer OTHER, SELFPAY ==
--- NOTE | 2024-09-10 12:43 | MM_ITS ---
WS: [id number] BILATERAL 3D TOMOSYNTHESIS DIGITAL SCREENING MAMMOGRAPHY WITH CAD CLINICAL INFORMATION: SCREENING HISTORY: Screening mammogram. No current complaints. COMPARISON: 2017 TECHNIQUE: Bilateral CC and MLO views. FINDINGS: Scattered fibroglandular densities bilaterally. No suspicious focal mass, asymmetry, calcifications, or architectural distortion. No evidence of malignancy. A few incidental intramammary lymph nodes. MM/MM scr tomosynthesis [id number] IMPRESSION: DENSITY: There are scattered areas of fibroglandular density. BI-RADS: 2 - Benign. FOLLOW UP: 1 Year Follow-up Recommend return to annual screening mammography.
--- NOTE | 2024-09-10 12:43 | XR_ITS ---
WS: [id number] SCREENING DEXA SCAN [employer] CLINICAL INFORMATION: POSTMENOPAUSAL COMPARISON: None. FINDINGS: The L1-L4 bone mineral density measures 1.433 g/cm2. This corresponds to a T score score of 2.1 and Z score of 2.7. Left femoral neck bone mineral density measures 1.019 g/cm2. This corresponds to a T score of 0.1 and Z score of 0.6. Right femoral neck bone mineral density measures 0.972 g/cm2. This corresponds to a T score -0.3of and Z score of 0.2. Mean femoral neck bone mineral density measures 0.996 g/cm2. This corresponds to a T score of -0.1 and Z score of 0.4. XR/XR DEXA axial skeleton* [id number] IMPRESSION: Normal bone mineralization. Patient's FRAX calculated 10 year probability for major osteoporotic fracture i s 5.9% and osteoporotic hip fracture is 0.2%.
== END 2024-09-10 12:37 | disposition home or self-care (01) ==
LOC: RAD 12:38
PROVIDERS: PCP Electrodiagnostic Medicine; Visit Provider Electrodiagnostic Medicine
DX: Z12.31 Encounter for screening mammogram for malignant neoplasm of breast (principal); Z78.0 Asymptomatic menopausal state; R92.323 Mammographic fibroglandular density, bilateral breasts; R59.0 Localized enlarged lymph nodes
CPT/HCPCS: 77063; 77067; 77080

== ENCOUNTER 2024-09-15 11:53 | Outpatient (CLI) | payer OTHER, SELFPAY ==
--- NOTE | 2024-09-15 11:56 | CT_ITS ---
WS: [id number] LDCT LUNG CANCER SCREENING HISTORY: HX OF TOBACCO USE TECHNIQUE: Axial imaging performed from the apices to 1 cm below the costophrenic angles. Coronal and sagittal reformats are submitted with axial MIP series. All CT scans at [facility] use at least one of these dose optimization techniques: automated exposure control; mA and/or kV adjustment per patient size (includes targeted exams where dose is matched to clinical indication); or iterative reconstruction. DLP: 52.12 mGy.cm DIvol: Mean CTDIvol: 1.10 (mGy) COMPARISON: None available. Diagnostic quality: Satisfactory Lungs: Normally aerated lungs. 2 mm nodule, noncalcified LEFT upper lobe, image 72 series 4. Linear scar anterior medial RIGHT upper lobe. 2 mm noncalcified nodule RIGHT lower lobe, image 121 series 4. No mass or endobronchial lesions. Heart: Normal size heart with no pericardial effusion.. Other findings: Calcified subcarinal lymph nodes. No pathologic adenopathy. Mild atherosclerosis aorta. Normal size pulmonary artery. Small hiatal hernia. No adrenal mass. Prior cholecystectomy. Splenic granulomata. Mild thoracic spondylosis. CT/CT lung screening [id number] IMPRESSION: LUNG-RADS: 2-Benign Appearance or Behavior FOLLOW UP: 12 Month: Continue annual screening with LDCT OTHER FINDINGS (S MODIFIER): None.
== END 2024-09-15 11:54 | disposition home or self-care (01) ==
PROVIDERS: PCP Electrodiagnostic Medicine; Visit Provider Electrodiagnostic Medicine
DX: Z12.2 Encounter for screening for malignant neoplasm of respiratory organs (principal); Z87.891 Personal history of nicotine dependence; R91.8 Other nonspecific abnormal finding of lung field; J98.4 Other disorders of lung; R59.0 Localized enlarged lymph nodes; I70.0 Atherosclerosis of aorta; K44.9 Diaphragmatic hernia without obstruction or gangrene; Z90.49 Acquired absence of other specified parts of digestive tract; D73.89 Other diseases of spleen; M47.894 Other spondylosis, thoracic region
CPT/HCPCS: 71271